=== PATIENT | female | born 1990 | race Asian ===

== ENCOUNTER 2018-07-27 23:51 | Emergency (ER) | payer BC ==
[~2018-07-27] VITALS: Ht 162.6 cm; Wt 78.9 kg
[2018-07-28 00:02] VITALS: Ht 162.6 cm; Wt 78.9 kg
[2018-07-28 03:00] VITALS: BP 138/91
== END 2018-07-28 03:00 | disposition home or self-care (01) ==
LOC: ED 23:51
DX: L51.9 Erythema multiforme, unspecified (principal)
CPT/HCPCS: J1200